=== PATIENT | female | born 1965 | race Caucasian/White ===

== ENCOUNTER 2017-05-18 11:49 | Emergency (ER) | payer MEDICAID ==
[~2017-05-18] VITALS: Ht 172.7 cm; Wt 64.5 kg
[2017-05-18] MEDS ORDERED: SODIUM CHLORIDE 0.9% 1,000 ML IV ONE ×2 (13:00→14:30)
[2017-05-18] MEDS ORDERED: MAGNESIUM SULFATE 2 GM, MVI, ADULT NO.1 WITH VIT K 10 ML, THIAMINE HCL 100 MG, FOLIC AC... IV ONE ×5 (13:15)
[2017-05-18 16:00] VITALS: BP 122/71
== END 2017-05-18 16:18 | disposition home or self-care (01) ==
LOC: EMS 11:52
DX: F10.229 Alcohol dependence with intoxication, unspecified (principal); Y90.8 Blood alcohol level of 240 mg/100 ml or more
CPT/HCPCS: 36415; 96365; 99285; G0480; J3411; J3475; J3490 ×2; J7030